=== PATIENT | female | born 1955 ===

== ENCOUNTER 2017-09-01 14:08 | Emergency (ER) | payer MEDICAID, OTHER ==
[2017-09-01 14:55] VITALS: BP 127/68; RESP 16; TEMP 98.6
--- NOTE | 2017-09-01 15:30 | ED PDOC ---
Arrival/HPI - General Chief Complaint: Hip Pain Time Seen by Provider: 09/01/17 14:43 Historian: Patient - History of Present Illness Narrative History of Present Illness (Text): 09/01/17 15:27 61yo female who present with complaint of chronic right hip pain. state she saw her PMD few months ago for this pain and was given Ibuprofen. She states she have not taken any analgesic for few weeks/days now. She denies new trauma, back pain, focal weakness, urinary/fecal incontinence, abdominal pain, nausea, vomiting, urinary symptoms, any other complaint. Past Medical History - Provider Review Nursing Documentation Reviewed: Yes - Infectious Disease Hx of Infectious Diseases: None - Cardiac Hx Cardiac Disorders: No - Pulmonary Hx Asthma: Yes Hx Chronic Obstructive Pulmonary Disease (COPD): Yes - Neurological Hx Neurological Disorder: No - HEENT Hx HEENT Disorder: No - Renal Hx Renal Disorder: No - Endocrine/Metabolic Hx Endocrine Disorders: No - Hematological/Oncological Hx Blood Disorders: No - Integumentary Hx Dermatological Disorder: No - Musculoskeletal/Rheumatological Hx Musculoskeletal Disorders: Yes Hx Back Pain: Yes - Gastrointestinal Hx Gastrointestinal Disorders: No - Genitourinary/Gynecological Hx Genitourinary Disorders: No - Psychiatric Hx Psychophysiologic Disorder: Yes Hx Depression: Yes Hx Substance Use: Yes (HEROIN) - Anesthesia Hx Anesthesia: No Family/Social History - Physician Review Nursing Documentation Reviewed: Yes Family/Social History: Unknown Family HX Smoking Status: Light Smoker < 10 Cigarettes Daily Hx Alcohol Use: Yes Hx Substance Use: Yes (HEROIN) Substance used: coccaine and heroine Allergies/Home Meds Allergies/Adverse Reactions: Allergies No Known Allergies Allergy (Verified 09/01/17 14:38) Review of Systems - Physician Review All systems were reviewed & negative as marked: Yes - Review of Systems Constitutional: Normal Eyes: Normal ENT: Normal Respiratory: Normal Cardiovascular: Normal Gastrointestinal: Normal Genitourinary Female: Normal Musculoskeletal: Arthralgias (Right hip pain) Skin: Normal Neurological: Normal Endocrine: Normal Hemo/Lymphatic: Normal Psychiatric: Normal Physical Exam Vital Signs Reviewed: Yes Vital Signs Temp Pulse Resp BP Pulse Ox 09/01/17 15:46 69 16 127/68 98 09/01/17 14:51 98.6 F 81 16 127/68 96 Temperature: Afebrile Blood Pressure: Normal Pulse: Regular Respiratory Rate: Normal Appearance: Positive for: Well-Appearing, Non-Toxic, Comfortable, Other (Appear sleepy, but arousable) Pain Distress: None Mental Status: Positive for: Alert and Oriented X 3 - Systems Exam Head: Present: Atraumatic, Normocephalic Pupils: Present: PERRL Extroacular Muscles: Present: EOMI Conjunctiva: Present: Normal Mouth: Present: Moist Mucous Membranes Neck: Present: Normal Range of Motion Respiratory/Chest: Present: Clear to Auscultation, Good Air Exchange. No: Respiratory Distress, Accessory Muscle Use Cardiovascular: Present: Regular Rate and Rhythm, Normal S1, S2. No: Murmurs Abdomen: No: Tenderness, Distention, Peritoneal Signs Back: Present: Normal Inspection Upper Extremity: Present: Normal Inspection. No: Cyanosis, Edema Lower Extremity: Present: Normal Inspection, NORMAL PULSES, Normal ROM (Mild pain with internal adduction of right hip), Neurovascularly Intact. No: Edema , Tenderness, Swelling, Temperature Abnormalties Neurological: Present: GCS=15, CN II-XII Intact, Speech Normal Skin: Present: Warm, Dry, Normal Color. No: Rashes Psychiatric: Present: Alert, Oriented x 3, Normal Insight, Normal Concentration Medical Decision Making ED Course and Treatment: 09/01/17 23:59 PT was not in any distress in ED. she was ambulatory with normal steady gait. Her pain was controlled in ED with medication. She noted that pain is chronic. she was DC home with rx of Naprosyn and referred to ortho. - Medication Orders Current Medication Orders: Discontinued Medications Ketorolac Tromethamine (Toradol) 60 mg IM STAT STA Stop: 09/01/17 14:54 Last Admin: 09/01/17 14:59 Dose: 60 mg MAR Pain Assessment Document 09/01/17 14:59 GALLO (Rec: 09/01/17 14:59 GALLO [id number]) Pain Reassessment Is this a pain reassessment? Yes Presence of Pain Presence of Pain Yes Pain Scale Used Pain Scale Used Numeric Location Left, Right or Bilateral Right Pain Location Body Site Hip Description Description Sharp Intensity of Pain at present 10 IM Administration Charges Document 09/01/17 14:59 GALLO (Rec: 09/01/17 14:59 GALLO [id number]) Injection Site MAR Injection Site Right Deltoid Charges for Administration # of IM Administrations 1 Disposition/Present on Arrival - Present on Arrival Any Indicators Present on Arrival: No History of DVT/PE: No History of Uncontrolled Diabetes: No Urinary Catheter: No History of Decub. Ulcer: No History Surgical Site Infection Following: None - Disposition Have Diagnosis and Disposition been Completed?: Yes Diagnosis: Hip pain Disposition: HOME/ ROUTINE Disposition Time: 15:35 Patient Plan: Discharge Condition: STABLE Discharge Instructions (ExitCare): Hip Pain Additional Instructions: Follow up with your Doctor/Orthopedist Return to ED for any new symptoms Prescriptions: Naproxen [Naprosyn] 500 mg PO BID #20 tablet Referrals: Dimas Guzman MD [Primary Care Provider] - Follow up with primary Forms: [email or web address] ([place])
[2017-09-01 15:47] VITALS: PULSE 69; O2SAT 98
== END 2017-09-01 15:46 | disposition home or self-care (01) ==
LOC: ED 14:08
DX: M25.551 Pain in right hip (principal); F17.210 Nicotine dependence, cigarettes, uncomplicated
CPT/HCPCS: 96372; 99282; J1885